=== PATIENT | female | born 1930 | race Native Hawaiian/Other Pacific Islander ===

== ENCOUNTER 2016-12-26 11:09 | Outpatient (CLI) | payer OTHER ==
[~2016-12-26 11:09] MED LIST: AMLO2.5T PO; BAYER LOW DOSE81 MG PO; GABA300C2 PO; GARLIC1000 MG PO; LEVO0.0529 PO; MACRODANTIN100 MG PO; METO50TA27 PO; MICARDIS H80 MG/25 M PO; NEXIUM40 MG PO; NITROSTAT0.4 MG SL; PANT40TA PO; PRAV40TA PO; RANITIDINE 150150 MG PO; SINGULAIR10 MG PO; UNITHROID50 MCG PO; VITAMIN B-12250 MCG PO
== END 2016-12-26 19:14 | disposition home or self-care (01) ==
LOC: MAMMO 11:09
DX: Z12.31 Encounter for screening mammogram for malignant neoplasm of breast (principal)
CPT/HCPCS: G0202-TC

== ENCOUNTER 2017-04-11 13:57 | Outpatient (CLI) | payer OTHER | END 2017-04-11 19:38 | disposition home or self-care (01) | LOC: RAD 13:57 | DX: R10.13 Epigastric pain (principal) ==

== ENCOUNTER 2018-04-19 13:15 | Emergency (ER) | payer OTHER ==
[~2018-04-19] VITALS: Ht 162.6 cm; Wt 63.5 kg
[2018-04-19 14:38] LABS: PLATELET COUNT 255 K/uL (152-353)
[2018-04-19 14:51] LABS: POTASSIUM 4.2 mmol/L (3.6-5.2); SODIUM 143 mmol/L (136-145)
[2018-04-19 15:30] VITALS: BP 167/51
== END 2018-04-19 15:30 | disposition home or self-care (01) ==
LOC: ED 13:15
DX: R07.89 Other chest pain (principal)
CPT/HCPCS: 36415; 80053; 82550; 82553; 84484; 85027; 93005; 99283

== ENCOUNTER 2018-05-05 06:24 | Emergency (ER) | payer OTHER ==
[~2018-05-05] VITALS: Ht 162.6 cm; Wt 63.5 kg
[2018-05-05 07:30] VITALS: BP 169/70; TEMP 98.6
== END 2018-05-05 07:35 | disposition home or self-care (01) ==
LOC: ED 06:24
DX: J04.0 Acute laryngitis (principal)
CPT/HCPCS: 99282

== ENCOUNTER 2018-07-30 12:20 | Emergency (ER) | payer OTHER ==
[~2018-07-30] VITALS: Ht 162.6 cm; Wt 63.5 kg
[2018-07-30 12:21] VITALS: TEMP 97.7
[2018-07-30 12:52] LABS: POTASSIUM 4.9 mmol/L (3.6-5.2); SODIUM 139 mmol/L (136-145)
[2018-07-30 13:48] LABS: PLATELET COUNT 338 K/uL (152-353)
[2018-07-30 14:20] VITALS: BP 137/57
== END 2018-07-30 14:20 | disposition home or self-care (01) ==
LOC: ED 12:20
PROVIDERS: Family Medicine
DX: R07.89 Other chest pain (principal); K21.9 Gastro-esophageal reflux disease without esophagitis; R00.0 Tachycardia, unspecified
CPT/HCPCS: 36415; 80053; 82550; 84484; 85027; 93005; 96374; 99284; J3490

== ENCOUNTER 2018-10-07 13:20 | Outpatient (CLI) | payer OTHER | END 2018-10-07 19:18 | disposition home or self-care (01) | LOC: RAD 13:20 | DX: J06.9 Acute upper respiratory infection, unspecified (principal) ==

== ENCOUNTER 2018-12-19 10:41 | Outpatient (CLI) | payer OTHER ==
[2018-12-19 11:58] LABS: POTASSIUM 4.4 mmol/L (3.6-5.2)
== END 2018-12-19 21:36 | disposition home or self-care (01) ==
LOC: LABW 10:41
PROVIDERS: Nurse Practitioner
DX: M54.42 Lumbago with sciatica, left side (principal); M79.661 Pain in right lower leg
CPT/HCPCS: 36415; 80053; 81000

== ENCOUNTER 2019-04-04 11:24 | Outpatient (CLI) | payer OTHER | END 2019-04-04 19:10 | disposition home or self-care (01) | LOC: RAD 11:24 | DX: R07.89 Other chest pain (principal) ==

== ENCOUNTER 2019-07-03 19:15 | Outpatient (CLI) | payer OTHER ==
[2019-07-03 19:46] LABS: PLATELET COUNT 314 K/uL (152-353)
[2019-07-03 20:06] LABS: POTASSIUM 4.6 mmol/L (3.6-5.2)
== END 2019-07-03 23:23 | disposition home or self-care (01) ==
LOC: LAB 19:15
PROVIDERS: Nurse Practitioner
DX: R53.1 Weakness (principal); E78.00 Pure hypercholesterolemia, unspecified; R53.82 Chronic fatigue, unspecified
CPT/HCPCS: 80053; 80061; 84443; 85027

== ENCOUNTER 2020-02-06 10:27 | Outpatient (CLI) | payer OTHER | END 2020-02-06 19:20 | disposition home or self-care (01) | LOC: US 10:27 | DX: M79.661 Pain in right lower leg (principal); M79.89 Other specified soft tissue disorders ==

== ENCOUNTER 2020-04-05 12:30 | Emergency (ER) | payer OTHER ==
[~2020-04-05] VITALS: Ht 162.6 cm; Wt 63.5 kg
[2020-04-05 13:23] LABS: PLATELET COUNT 322 K/uL (152-353)
[2020-04-05 16:10] VITALS: BP 131/82; TEMP 98.1
== END 2020-04-05 16:30 | disposition short-term general hospital (02) ==
LOC: ED 12:30
PROVIDERS: General Practice
DX: R79.89 Other specified abnormal findings of blood chemistry (principal)
CPT/HCPCS: 80053; 83735; 84484; 85027; 93005; 96365; 96372; 96375; 99285; J1650; J2405; J3475